=== PATIENT | male | born 1990 | race Caucasian/White ===

== ENCOUNTER 2017-01-24 21:30 | Emergency (ER) | payer OTHER ==
[2017-01-24 22:45] VITALS: BP 150/89
--- NOTE | 2017-01-24 23:19 | UC ---
Hand/Wrist HPI - HPI Summary HPI Summary: The patient comes in today for: 1. Right wrist pain: Onset: 9 hour ago. Palliative/provocative: Movement makes it worse. Rest makes it better. Quality: Sharp with movement. Dull pain otherwise. Region: Dorsum of the wrist. Severity: 6/10 Time: Constant. Associated symptoms: Event: He was involved with a restrain at [employer]. The patient and the restraintant fell to the concrete floor on his right wrist. Previous disease: None. Previous treatment: NOne. He states that he has had his ears (TM) ruptured multiple times but never had them evaluated and treated by ENT * - History Of Current Complaint Chief Complaint: UCUpperExtremity Stated Complaint: RIGHT WRIST-WC Time Seen by Provider: 01/24/17 23:00 Hx Obtained From: Patient - Allergies/Home Medications Allergies/Adverse Reactions: Allergies Allergy/AdvReac Type Severity Reaction Status Date / Time No Known Allergies Allergy Verified 01/24/17 22:26 Home Medications: Home Medications Prazosin CAP* [Minipress CAP*] 2 mg PO BEDTIME 01/24/17 [History Confirmed 01/24] QUEtiapine XR TAB* [SEROquel Xr TAB*] 50 mg PO BEDTIME 01/24/17 [History Confirmed 01/24/17] Triazolam TAB* [Halcion TAB*] 0.25 mg PO SEE INSTRUCTIONS 01/24/17 [History Confirmed 01/24/17] Venlafaxine CAP (NF) [Effexor CAP (NF)] 75 mg BEDTIME 01/24/17 [History Confirmed 01/24/17] cloNIDine TAB* [Catapres 0.1 MG TAB*] 0.1 mg PO BEDTIME 01/24/17 [History Confirmed 01/24/17] lamoTRIgine TAB(*) [LaMICtal TAB(*)] 25 mg PO BEDTIME 01/24/17 [History Confirmed 01/24/17] PMH/Surg Hx/FS Hx/Imm Hx Previously Healthy: No - insomnia. Endocrine History Of: Denies: Diabetes, Thyroid Disease, Hyperthyroidism, Hypothyroidism, Dyslipidemia Cardiovascular History Of: Reports: Hypertension - He states that taking clonidine regularly, his blood pressure is good. Denies: Cardiac Disorders, Pacemaker/ICD, Myocardial Infarction, Congestive Heart Failure, Atrial Fibrillation, Deep Vein Thrombosis, Bleeding Disorders Respiratory History Of: Reports: Asthma - As child Denies: COPD, Bronchitis, Pneumonia, Pulmonary Embolism GI/ History Of: Denies: Gastroesophageal Reflux, Ulcer, Gastrointestinal Bleed, Gall Bladder Disease, Kidney Stones, Diverticulitis, Renal Disease, Urosepsis Neurological History Of: Denies: TIA, CVA, Dementia, Seizures, Migraine Psychological History Of: Reports: Depression, Bipolar Disorder, Post Traumatic Stress Disorder Denies: Anxiety, Schizophrenia Cancer History Of: Denies: Lung Cancer, Colorectal Cancer, Breast Cancer, Prostate Cancer, Cervical Cancer Other History Of: Negative For: HIV, Hepatitis B, Hepatitis C, Anticoagulant Therapy - Surgical History Surgical History: Yes Surgery Procedure, Year, and Place: RIGHT knee replacement. Pins/brackets in RIGHT foot. Tonsils - Family History Known Family History: Negative: Cardiac Disease, Hypertension - Social History Occupation: Employed Full-time Alcohol Use: Weekly Alcohol Amount: 1xweek Substance Use Type: None Smoking Status (MU): Never Smoked Tobacco - Immunization History Most Recent Influenza Vaccination: 2015 Most Recent Tetanus Shot: UTD Most Recent Pneumonia Vaccination: N/A Review of Systems Constitutional: Negative Skin: Negative Eyes: Negative ENT: Negative Respiratory: Negative Cardiovascular: Negative Gastrointestinal: Negative Genitourinary: Negative Musculoskeletal: Arthralgia All Other Systems Reviewed And Are Negative: Yes Physical Exam Triage Information Reviewed: Yes Appearance: Well-Appearing, No Pain Distress, Well-Nourished Vital Signs: Initial Vital Signs Temp 98.4 F 01/24/17 22:34 Pulse 90 01/24/17 22:34 Resp 18 01/24/17 22:34 BP 150/89 01/24/17 22:34 Pulse Ox 99 01/24/17 22:34 Vital Signs Reviewed: Yes Eyes: Positive: Conjunctiva Clear. Negative: Discharge ENT: Positive: Hearing grossly normal. Negative: Pharyngeal erythema, Nasal congestion, Tonsillar swelling, Tonsillar exudate - TM lino and white suggesting scarring. Dental: Negative: Gross Decay/Caries @, Dental Fracture @ Neck: Positive: Supple, Nontender, No Lymphadenopathy. Negative: Nuchal Rigidity Respiratory: Positive: Lungs clear, No respiratory distress, No accessory muscle use. Negative: Crackles, Wheezing Cardiovascular: Positive: RRR, No Murmur Abdomen Description: Positive: Nontender, No Organomegaly, Soft. Negative: Distended, Guarding Musculoskeletal: Positive: Strength Intact, ROM Intact, No Edema, Other: - Right wrist: NO edema, no ecchymosis, thumb enclosed fist, thumbs up and pincher test all normal. NVI Neurological: Positive: Alert, Muscle Tone Normal Psychological: Positive: Age Appropriate Behavior, Consolable Skin: Negative: rashes, breakdown Hand/Wrist Course/Dx - Course Course Of Treatment: Patient told to wear splint and take medications to be re- evaluated after several days. - Differential Dx/Diagnosis Differential Diagnosis/HQI/PQRI: Sprain, Strain Provider Diagnoses: Right wrist sprain. Discharge - Discharge Plan Condition: Stable Disposition: HOME Patient Education Materials: Wrist Sprain (ED) Forms: *Work Release Referrals: Jules Prasad [Primary Care Provider] - 3 Days (See your primary care provider or us after several days to see how well you are doing. IF you get worse between now and then, please be seen sooner.)
[2017-01-24] MEDS ORDERED: Naproxen TAB* 250 MG PO ONE (23:26)
--- NOTE | 2017-01-25 07:47 | RAD ---
INDICATION: Right wrist injury. TECHNIQUE: 3 views of the right wrist were obtained. FINDINGS: The bones are in normal alignment. No fracture is seen. Joint spaces appear maintained. IMPRESSION: NO EVIDENCE FOR FRACTURE. IF THE PATIENT'S SYMPTOMS PERSIST RECOMMEND FOLLOW-UP IMAGING.
== END 2017-01-24 23:47 | disposition home or self-care (01) ==
LOC: UCCORT 21:30
DX: S63.501A Unspecified sprain of right wrist, initial encounter (principal); W19.XXXA Unspecified fall, initial encounter; Y93.89 Activity, other specified; Y92.159 Unspecified place in reform school as the place of occurrence of the external cause; Y99.0 Civilian activity done for income or pay; G47.00 Insomnia, unspecified; I10 Essential (primary) hypertension; Z96.651 Presence of right artificial knee joint
CPT/HCPCS: 99203; A9270-GY; G0463

== ENCOUNTER 2017-01-28 14:57 | Emergency (ER) | payer OTHER ==
[2017-01-28 15:47] VITALS: BP 127/84
--- NOTE | 2017-01-28 17:13 | UC ---
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 his left knee was hit on the medial side pain was so intense he fell onto his knee heard a loud pop and difficult to move afterwards shoved his from lateral side patella back onto knee not able to walk on left leg until 45 minutes later any weight bearing increases pain nothing lessens the pain pain is inside of knee and shoots to the lateral side not taking anything for pain - History of Current Complaint Chief Complaint: UCLowerExtremity Stated Complaint: LEFT KNEE INJURY WC Time Seen by Provider: 01/28/17 17:05 Hx Obtained From: Patient - Allergies/Home Medications Allergies/Adverse Reactions: Allergies Allergy/AdvReac Type Severity Reaction Status Date / Time No Known Allergies Allergy Verified 01/28/17 15:46 PMH/Surg Hx/FS Hx/Imm Hx Previously Healthy: Yes Endocrine History Of: Denies: Diabetes, Thyroid Disease, Hyperthyroidism, Hypothyroidism, Dyslipidemia Cardiovascular History Of: Reports: Hypertension - He states that taking clonidine regularly, his blood pressure is good. Denies: Cardiac Disorders, Pacemaker/ICD, Myocardial Infarction, Congestive Heart Failure, Atrial Fibrillation, Deep Vein Thrombosis, Bleeding Disorders Respiratory History Of: Reports: Asthma - As child Denies: COPD, Bronchitis, Pneumonia, Pulmonary Embolism GI/ History Of: Denies: Gastroesophageal Reflux, Ulcer, Gastrointestinal Bleed, Gall Bladder Disease, Kidney Stones, Diverticulitis, Renal Disease, Urosepsis Neurological History Of: Denies: TIA, CVA, Dementia, Seizures, Migraine Psychological History Of: Reports: Depression, Bipolar Disorder, Post Traumatic Stress Disorder Denies: Anxiety, Schizophrenia Cancer History Of: Denies: Lung Cancer, Colorectal Cancer, Breast Cancer, Prostate Cancer, Cervical Cancer Other History Of: Negative For: HIV, Hepatitis B, Hepatitis C, Anticoagulant Therapy - Surgical History Surgical History: Yes Surgery Procedure, Year, and Place: RIGHT knee replacement. Pins/brackets in RIGHT foot. Tonsils. Ear tubes. Right wrist ORIF - Family History Known Family History: Negative: Cardiac Disease, Hypertension - Social History Occupation: Employed Full-time Lives: With Family Alcohol Use: Weekly Alcohol Amount: 1xweek Substance Use Type: None Smoking Status (MU): Never Smoked Tobacco - Immunization History Most Recent Influenza Vaccination: 2016 Most Recent Tetanus Shot: UTD Most Recent Pneumonia Vaccination: N/A Review of Systems Constitutional: Negative Skin: Negative Eyes: Negative ENT: Negative Respiratory: Negative Cardiovascular: Negative Gastrointestinal: Negative Genitourinary: Negative Motor: Negative Neurovascular: Negative Musculoskeletal: Other: - left knee pain Neurological: Negative Psychological: Negative All Other Systems Reviewed And Are Negative: Yes Physical Exam Triage Information Reviewed: Yes Appearance: Well-Appearing, No Pain Distress Vital Signs: Initial Vital Signs Temp 98.2 F 01/28/17 15:42 Pulse 107 01/28/17 15:42 Resp 16 01/28/17 15:42 BP 127/84 01/28/17 15:42 Pulse Ox 97 01/28/17 15:42 Vital Signs Reviewed: Yes Eyes: Positive: Conjunctiva Clear ENT: Positive: Pharynx normal, TMs normal Neck: Positive: No Lymphadenopathy Respiratory: Positive: Lungs clear, Normal breath sounds, No respiratory distress Cardiovascular: Positive: RRR, No Murmur, Pulses Normal Abdomen Description: Positive: Nontender, Soft Bowel Sounds: Positive: Present Musculoskeletal: Positive: Other: - LLE- No bony deformities, tenderness and edema around patella Full ROM (extension/flexion). Limited internal and external rotation. negative Anterior/Posterior Drawer signs, pain with valgus and varus pressure Neurological: Positive: Alert Psychological Exam: Normal Skin Exam: Normal Knee Pain Course/Dx - Course Course Of Treatment: exam completed. x-ray shows no fracture- d/t mechanism of injury, pain with ambulation will send to orthopedics for further evaluation - Differential Dx/Diagnosis Differential Diagnosis/HQI/PQRI: Fracture (Closed), Internal Derangement Of Knee , Sprain, Strain Provider Diagnoses: left knee- internal derangement of the knee Discharge - Discharge Plan Condition: Stable Disposition: HOME Patient Education Materials: Knee Pain (ED), Swollen Knee Joint (ED) Forms: *Work Release Referrals: Jules Prasad [Primary Care Provider] - Kosta Zendejas MD [Medical Doctor] - Additional Instructions: .Please call clinical trial specialist for an appointment. They will evaluate and determine your treatment. It is important to keep weight off of your knee Use crutches and wear immobilizer until you are seen by orthopedics. Take ibuprofen to control pain and reduce inflammation. Please review your discharge instructions. If your symptoms worsen call clinical trial specialist or return to urgent care. Your blood pressure is pre-hypertensive reading. Please contact your primary care provider within 1 day -4 weeks for further evaluation
--- NOTE | 2017-01-28 17:44 | RAD ---
HISTORY: Left knee pain and trauma COMPARISONS: None VIEWS: 2, Frontal and lateral views of the left knee FINDINGS: BONE DENSITY: Normal. BONES: There is no displaced fracture. JOINTS: There is no arthropathy. There is no suprapatellar joint effusion or lipohemarthrosis. ALIGNMENT: There is no dislocation. SOFT TISSUES: Unremarkable. OTHER FINDINGS: None. IMPRESSION: NO ACUTE OSSEOUS INJURY. IF SYMPTOMS PERSIST, RECOMMEND REPEAT IMAGING.
== END 2017-01-28 18:00 | disposition home or self-care (01) ==
LOC: UCCORT 14:57
DX: S89.92XA Unspecified injury of left lower leg, initial encounter (principal); X58.XXXA Exposure to other specified factors, initial encounter; Y93.89 Activity, other specified; Y92.159 Unspecified place in reform school as the place of occurrence of the external cause; Y99.0 Civilian activity done for income or pay; I10 Essential (primary) hypertension; J45.909 Unspecified asthma, uncomplicated; F31.9 Bipolar disorder, unspecified; Z96.651 Presence of right artificial knee joint
CPT/HCPCS: 99213; G0463

== ENCOUNTER 2017-10-17 08:23 | Day surgery (SDC) | payer OTHER ==
--- NOTE | 2017-10-11 21:22 | HP ---
PREOPERATIVE HISTORY AND PHYSICAL: DATE OF ADMISSION/SURGERY: 10/17/17 - [facility] DATE OF OFFICE VISIT: 10/11/17 ATTENDING SURGEON: Dr. Didi Reza.* (DICTATED BY ALFA DEGROOT) PROCEDURE: Left knee arthroscopy, possible meniscus repair, outside-in repair. CHIEF COMPLAINT: Left knee pain. HISTORY OF PRESENT ILLNESS: Jarett is a 27-year-old male who presented to the clinic for a left knee pain after a work-related injury where one of the residents of [facility] drove his knee into the patient's knee. He has had continued pain and failed conservative measures and therefore agreed to undergo a left knee arthroscopy, possible meniscus repair, outside-in repair with Dr. Reza on 10/17/17. PAST MEDICAL HISTORY: PTSD, asthma, chronic right knee pain, depression, anxiety and history of hypertension. PAST SURGICAL HISTORY: Tubes in his ear, multiple right knee scopes, right wrist surgery, tonsillectomy and right foot surgery. The patient denies prior complications with anesthesia. MEDICATIONS: 1. Clonidine HCl 0.1 mg one by mouth 3 times a day. 2. Escitalopram oxalate 10 mg one by mouth every day. 3. Doxepin HCl 50 mg one capsule at bedtime. ALLERGIES: No known drug allergies. FAMILY HISTORY: Positive for diabetes, stroke and cancer. SOCIAL HISTORY: He lives with his spouse. He works as a occupational therapist assistant. He is a former smoker and quit in 2013, however, currently does chew tobacco. He reports occasional alcohol consumption. He exercises occasionally. He is right hand dominant. He denies illegal drug use. REVIEW OF SYSTEMS: A 14-point review of systems was reviewed with the patient. Positive for current complaint, otherwise negative. Denies fevers, chills, chest pain, or shortness of breath, history of bleeding disorder, history of DVT or PE, history of MRSA. PHYSICAL EXAMINATION GENERAL: A 27-year-old well-developed, well-nourished male in no acute distress. Alert and oriented x3. Appropriate mood and affect. VITAL SIGNS: Height 66, weight 276. Blood pressure 132/80, respiratory rate 18 , temperature 98.2, BMI 44.5. HEENT: Normocephalic, atraumatic. PERRLA. Throat clear. NECK: Supple. PULMONARY: Lungs are clear to auscultation bilaterally. No wheezing, rhonchi, or rales. CARDIO: Regular rate and rhythm. S1, S2. No murmurs, gallops, or rubs. No edema. ABDOMEN: Positive bowel sounds, soft, nontender. MUSCULOSKELETAL: Left lower extremity, skin is intact. No warmth or erythema, mild effusion, tenderness to palpation over the lateral joint line. Range of motion 0 to 120. Stable to varus and valgus stress, stable Jason, negative posterior drawer, positive James. Calves are soft, nontender. +2 PT pulses. Sensation intact to light touch distally. NEURO: Alert and oriented x3. Cranial nerves grossly intact. Sensation is intact to light touch distally. DIAGNOSTIC STUDIES: Multiple view x-rays and MRI of the left knee revealed radial split tear of the lateral meniscus. IMPRESSION: Left knee radial split tear of the lateral meniscus. PLAN: The patient is scheduled to undergo a left knee arthroscopy, possible meniscus repair, outside-in repair with Dr. Reza on 10/17/17. He will follow up in 10 to 14 days postop for followup and suture removal. Script for Percocet was sent to his pharmacy for postop pain management. ALFA DEGROOT [id number]/CPS #: [id number] MTDCarol
[~2017-10-17 08:23] MED LIST: Buffered Lidocaine 0.9% SYRIN* 5 ML/SYR SYRINGE INTRADERM ONE; Dexamethasone IV* 4 MG/ML 1 ML (4 MG) IV SLOW PU ONE; Dexamethasone IV* 4 MG/ML 1 ML (4 MG) ONE; Famotidine IV* 10 MG/ML 2 ML (20 mg) IV ONE; Famotidine IV* 10 MG/ML 2 ML (20 mg) ONE; ceFAZolin 2 GM PREMIX (*) 2 GM/50 ML BAG IVPB ONE
[2017-10-17] MEDS ORDERED: fentaNYL* 50 MCG/ML 2 ML VIAL (100 MCG VIAL) ONE (09:56)
[2017-10-17] MEDS ORDERED: Midazolam* 1 MG/ML 2 ML VIAL (2 MG) ONE (09:57)
[2017-10-17] MEDS ORDERED: Bupivacaine 0.25% SDV* 30 ML ONE (09:57)
[2017-10-17] MEDS ORDERED: Lidocaine 1% MPF wEPI 200,000* 30 ML SDV ONE (10:11)
[2017-10-17] MEDS ORDERED: Ketorolac INJ* 30 MG/ML 1 ML VIAL ONE (10:12)
[2017-10-17] MEDS ORDERED: Propofol* 10 MG/ML 20 ML BTL IV PUSH ONE (10:12)
[2017-10-17] MEDS ORDERED: Lidocaine 2% PF * 5 ML VIAL ONE (10:12)
[2017-10-17] MEDS ORDERED: Ondansetron INJ* 2 MG/ML VIAL ONE (10:42)
[2017-10-17] MEDS ORDERED: HYDROcodone/ACETAMIN 5-325 MG* 1 TAB PO PRN (10:52)
[2017-10-17] MEDS ORDERED: Naloxone* 0.4 MG/ML 1 ML VIAL IV PRN (10:52)
[2017-10-17] MEDS ORDERED: oxyCODONE/Acetamin 5/325 MG* TAB PO PRN (10:52)
[2017-10-17] MEDS ORDERED: fentaNYL* 50 MCG/ML 2 ML VIAL (100 MCG VIAL) IV PRN (10:52)
[2017-10-17] MEDS ORDERED: PROCHLORPERAZINE INJ 5 MG/ML 2 ML VIAL IV PRN (10:52)
[2017-10-17] MEDS ORDERED: oxyCODONE/Acetamin 5/325 MG* TAB ONE (11:36)
[2017-10-17 12:20] VITALS: BP 138/87
--- NOTE | 2017-10-18 05:13 | OP ---
CC: Jules LOMBARDI NP DATE OF OPERATION: 10/17/17 - [facility] DATE OF : 86 SURGEON: Didi Reza MD FURNITURE SALESPERSON: ALFA Young. An assistant media planner was needed for the entirety of the case to help with positioning, retraction and utilized throughout all portions of the case, in case also there was going to be a repair. PRE-OP DIAGNOSIS: Lateral radial split tear of the meniscus. POST-OP DIAGNOSIS: Lateral radial split tear of the meniscus. OPERATIVE PROCEDURE: Left knee arthroscopy with partial lateral meniscectomy. COMPLICATIONS: None. ESTIMATED BLOOD LOSS: Minimal. IMPLANTS: None. INDICATIONS: Jarett Savage is a 27-year-old male who sustained a work-related injury to his knee in January 2017. He has failed conservative management. He reports a dislocation of the knee cap in January and then he noticed in July he had a pop in the knee and had persistent catching and locking pain. Risks and benefits of surgery were discussed at length, including but not limited to bleeding, infection, damage to nerves, vessels, surrounding structures, wound nonhealing, persistent pain, need for further surgery, scarring, stiffness, incomplete relief of symptoms, failure of the repair, risk of DVT. DESCRIPTION OF PROCEDURE: The patient was greeted in the preoperative area by the attending surgeon. Correct extremity was marked and consent was confirmed. The patient was brought back to the operating suite where he was placed in supine position on the operating table. He then underwent general anesthesia with LMA intubation, after which an unsterile tourniquet was placed high in the proximal thigh. The lateral post was positioned. The left leg was then prepped and draped in the usual sterile fashion beginning with chlorhexidine soap, scrub, and alcohol wipe and a final prep with ChloraPrep. The knee was then intra-articularly injected with 1% lidocaine with epi. After appropriate surgical pause indicating side, site, procedure, and administration of antibiotics, the anterolateral portal was made sharply with 11 blade. The scope was introduced into the joint. The joint was examined. There were no obvious loose bodies. The patellofemoral joint had grade 0 to 1 changes with fissuring of the patellar cartilage, but no unstable flaps. The medial and lateral gutters without any loose bodies. The trochlea was without any wear. The scope was brought into the medial compartment, which had an intact meniscus and grade 0 to 1 changes. The ACL and PCL were intact. The knee was placed in figure- four position and the lateral meniscus was examined. There was an evidence of a radial split tear in the white-white zone with unstable flaps. This was found to be non-repairable as it did not go all the way to the red-red zone. This was then debrided back using biters and tresa. Once this debridement was complete, the lateral femoral condyle was examined and had fissuring as well. Synovectomy was done anteriorly to remove the abundant fat pad and the hemostasis was obtained using electrocautery device. The knee was thoroughly lavaged and removed of any loose debris. The wounds were copiously irrigated with sterile saline. The portals were closed with 3-0 nylon. Sterile dressings were applied. The knee was intra-articularly injected with 0.25% Marcaine. Cryo/Cuff as well as sterile dressings were applied. He was awoken from anesthesia and transferred to the PACU in stable condition. POSTOPERATIVE PLAN: He will be weightbearing as tolerated, using crutches for the first 3 to 5 days. Discharged on pain medication. DVT prophylaxis was considered, but deferred due to no previous personal or family history. I will see the patient back in 10 to 14 days. [id number]/[facility] #: [id number] LACIE
== END 2017-10-17 12:22 | disposition home or self-care (01) ==
LOC: OREAST 08:23
PROVIDERS: ATTEND Orthopaedic Surgery
DX: S83.282A Other tear of lateral meniscus, current injury, left knee, initial encounter (principal); W50.0XXA Accidental hit or strike by another person, initial encounter; Y92.159 Unspecified place in reform school as the place of occurrence of the external cause; Y99.0 Civilian activity done for income or pay; Z87.891 Personal history of nicotine dependence; F41.8 Other specified anxiety disorders; J45.909 Unspecified asthma, uncomplicated; I10 Essential (primary) hypertension; G47.33 Obstructive sleep apnea (adult) (pediatric)
CPT/HCPCS: A9270-GY; J0690; J1100; J1885; J2001; J2250; J2405; J2704; J3010

== ENCOUNTER 2018-07-03 08:18 | Day surgery (SDC) | payer OTHER ==
[~2018-07-03 08:18] MED LIST changes: -Dexamethasone IV* 4 MG/ML 1 ML (4 MG) ONE; -Famotidine IV* 10 MG/ML 2 ML (20 mg) ONE; -ceFAZolin 2 GM PREMIX (*) 2 GM/50 ML BAG IVPB ONE
[2018-07-03] MEDS ORDERED: Dexamethasone IV* 4 MG/ML 1 ML (4 MG) ONE (08:33)
[2018-07-03] MEDS ORDERED: Famotidine IV* 10 MG/ML 2 ML (20 mg) ONE (08:33)
[2018-07-03] MEDS ORDERED: ceFAZolin 2 GM in NS PREMIX(*) 2 GM/100 ML BAG IVPB ONE (08:33)
[2018-07-03] MEDS ORDERED: ROPIVACAINE 5 MG/ML 30 ML BTL (0.5%) ONE (09:44)
[2018-07-03] MEDS ORDERED: Lidocaine 1% MPF wEPI 200,000* 30 ML SDV ONE (09:44)
[2018-07-03] MEDS ORDERED: fentaNYL* 50 MCG/ML 2 ML VIAL (100 MCG VIAL) ONE (09:51)
[2018-07-03] MEDS ORDERED: Midazolam* 1 MG/ML 5 ML VIAL (5 MG) ONE (09:51)
[2018-07-03] MEDS ORDERED: fentaNYL* 50 MCG/ML 2 ML VIAL (100 MCG VIAL) IV PRN (10:00)
[2018-07-03] MEDS ORDERED: HYDROcodone/ACETAMIN 5-325 MG* 1 TAB PO PRN (10:00)
[2018-07-03] MEDS ORDERED: oxyCODONE/Acetamin 5/325 MG* TAB PO PRN (10:00)
[2018-07-03] MEDS ORDERED: Naloxone* 0.4 MG/ML 1 ML VIAL IV PRN (10:00)
[2018-07-03] MEDS ORDERED: DiMENhydriNATE IV* 50 MG/ML VIAL IV PUSH PRN (10:00)
[2018-07-03] MEDS ORDERED: Lidocaine 2% PF * 5 ML VIAL ONE (10:06)
[2018-07-03] MEDS ORDERED: Propofol* 10 MG/ML 20 ML BTL IV PUSH ONE (10:06)
[2018-07-03] MEDS ORDERED: Ketorolac INJ* 30 MG/ML 1 ML VIAL ONE (10:15)
[2018-07-03] MEDS ORDERED: Ondansetron INJ* 2 MG/ML VIAL ONE (10:38)
[2018-07-03] MEDS ORDERED: oxyCODONE/Acetamin 5/325 MG* TAB ONE (11:37)
[2018-07-03 12:13] VITALS: BP 97/60
--- NOTE | 2018-07-04 10:19 | OP ---
DATE OF OPERATION: 07/03/18 [facility] DATE OF : 86 SURGEON: Didi Reza MD BUSINESS ATTORNEY: None available. PRE-OP DIAGNOSIS: Left knee lateral meniscus tear. POST-OP DIAGNOSIS: Left knee lateral meniscus tear. OPERATIVE PROCEDURE: Left knee arthroscopy with partial lateral meniscectomy and synovectomy, partial lateral meniscectomy and chondroplasty of the patellofemoral joint. COMPLICATIONS: None. ESTIMATED BLOOD LOSS: Minimal. TOURNIQUET TIME: Zero minutes. INDICATIONS: Jarett Savage is a 27-year-old male who had a previous radial split tear of his lateral meniscus. He had undergone arthroscopy, did well until he was at work and he sustained a work-related injury. He was diagnosed with a re- tear of the lateral meniscus. Risks and benefits of surgery were discussed at length including but not limited to bleeding; infection; damage to nerves, vessels, surrounding structures; wound nonhealing; persistent pain; need for further surgery, scarring, stiffness, incomplete relief of symptoms, risk of anesthesia. DESCRIPTION OF PROCEDURE: The patient greeted in the preoperative area by the attending surgeon. Correct extremity was marked and consent was confirmed. The patient was brought back to the operating suite where he was placed in supine position on the operating table. He then underwent general anesthesia with LMA intubation after which he was appropriately positioned on the bed. An unsterile tourniquet was placed high on the proximal thigh. The lateral post was positioned. The left leg was then prepped and draped in the usual sterile fashion beginning with chlorhexidine soap, scrub, and alcohol wipe and a final prep with ChloraPrep. After appropriate surgical pause indicating site, side, procedure, and administration of antibiotics, the knee was intra-articularly injected with 1% lidocaine with epi. The anterolateral portal was made sharply with 11 blade. The scope was introduced through the joint. There was abundant scar tissue particularly anterolaterally. The anteromedial portal was made using 18-gauge for needle localization. The shaver was used to debride back the abundant scar tissue. The electrocautery device was also used to remove the dense tissue. The patellofemoral joint had areas of fissuring and some softening grade 2 changes along the center. This was debrided back using the shaver. The remainder of the cartilage with grade 0 changes, trochlea had grade 0 changes. Medial gutter was intact. Lateral gutter was difficult to visualize until the scar tissue was removed. ACL and PCL were intact. The medial meniscus was intact. Lateral compartment was examined. There were grade 0 to 1 changes but there was a radial split tear. This was debrided back using tresa and biters. Once this was complete, final images were obtained. The knee was sterilely lavaged to remove any loose debris. Wounds were copiously irrigated. The Jose Roberto portal was utilized to make sure there was no loose body evident. Final images were obtained. The portals were then closed with 3-0 nylon in interrupted fashion. Sterile dressings were applied. The knee was intra-articularly injected with 0.2% ropivacaine. Sterile dressings and Cryo/ Cuff was applied. She was awoken from anesthesia and transferred to PACU in stable condition. POSTOPERATIVE PLAN: He will be weightbearing as tolerated. Range of motion as tolerated. He will be discharged on pain medication and antibiotics because of his revision surgery. I will see the patient back in 10 to 14 days. DVT prophylaxis was considered but deferred due to no previous personal or family history. I will see the patient back in 10 to 14 days. [id number]/[facility] #: [id number] LACIE
== END 2018-07-03 12:04 | disposition home or self-care (01) ==
LOC: OREAST 08:18
PROVIDERS: ATTEND Orthopaedic Surgery
DX: S83.282A Other tear of lateral meniscus, current injury, left knee, initial encounter (principal); M25.462 Effusion, left knee; J45.909 Unspecified asthma, uncomplicated; F41.8 Other specified anxiety disorders; I10 Essential (primary) hypertension; F43.10 Post-traumatic stress disorder, unspecified; X58.XXXA Exposure to other specified factors, initial encounter; Y92.89 Other specified places as the place of occurrence of the external cause; Y99.0 Civilian activity done for income or pay; Z87.891 Personal history of nicotine dependence
CPT/HCPCS: 88304; A9270-GY; J0690; J1100; J1885; J2001; J2250; J2405; J2704; J2795; J3010

== ENCOUNTER → 2019-01-10 10:55 | Day surgery (SDC) | payer OTHER ==
--- NOTE | 2019-01-09 09:58 | HP ---
PREOPERATIVE HISTORY AND PHYSICAL: DATE OF SURGERY: 01/10/19 ATTENDING SURGEON: Dr. Didi Reza* (dictated by ALFA Degroot). PROCEDURE: Left knee arthroscopy, partial meniscectomy. CHIEF COMPLAINT: Left knee. HISTORY OF PRESENT ILLNESS: Jarett is a 28-year-old male who presents to the clinic for left knee pain due to a work-related injury. He had a prior left knee scope with partial meniscectomy, but had an injury where he re-tore his meniscus. He failed conservative treatment and therefore has agreed to undergo a left knee arthroscopy, partial meniscectomy with Dr. Reza on 01/10/19. PAST MEDICAL HISTORY: Asthma, PTSD, depression, anxiety, chronic right knee pain, hypertension. PAST SURGICAL HISTORY: Multiple right knee arthroscopies, 2 left knee arthroscopies, left wrist surgery, tonsillectomy, right foot surgery, bilateral ear surgery, and back surgery. The patient denies prior complications with anesthesia. MEDICATIONS: Clonidine 0.1 mg one by mouth twice a day. ALLERGIES: No known drug allergies. FAMILY HISTORY: Positive for diabetes, stroke, and cancer. SOCIAL HISTORY: He lives with his spouse. He is a teacher. He is a former smoke, quit in 2012. He currently chews tobacco. He reports rare alcohol consumption. He exercises occasionally. He is a right-hand dominant. REVIEW OF SYSTEMS: A 14-point review of systems was reviewed with the patient. Positive for current complaint, otherwise negative. Denies fevers, chills, chest pain, shortness of breath, history of bleeding disorder, history of DVT or PE. PHYSICAL EXAMINATION GENERAL: A 28-year-old, well-developed, well-nourished male, in no acute distress. VITAL SIGNS: Height 67, weight 253, pulse 66, blood pressure 120/78, temperature 97.3, BMI 39.6. HEENT: Normocephalic, atraumatic. PERRLA. NECK: Supple. PULMONARY: Lungs clear to auscultation bilaterally. No wheezing, rhonchi, or rales. CARDIO: Regular rate and rhythm. S1, S2. No murmurs, gallops, or rubs. No edema. ABDOMEN: Positive bowel sounds, soft, nontender. NEURO: Alert and oriented x3. Cranial nerves grossly intact. MUSCULOSKELETAL: Left lower extremity: Skin is intact. No warmth or erythema. Previously well-healed surgical incision. Tenderness to palpation over lateral joint line. Range of motion 5 to 95. Stable to varus and valgus stress. Stable Jason and negative posterior drawer. Calves soft and nontender. +5/5 strength in ankle dorsiflexion and plantarflexion. +2 DP pulse. Sensation intact to light touch distally. DIAGNOSTIC STUDIES: MRI revealed a lateral meniscus tear as well as postsurgical changes. IMPRESSION: Left knee lateral meniscus tear. PLAN: The patient is scheduled to undergo a left knee arthroscopy with partial meniscectomy with Dr. Reza on 01/10/19. He will follow up in 10 to 14 days postop for followup and suture removal. Percocet will be used for postop pain management as well as Keflex for antibiotic prophylaxis since he has had prior surgeries. ALFA DEGROOT [id number]/[facility] #: [id number] [facility] CENTERCarol
[~2019-01-10 10:55] MED LIST changes: +Acetaminophen TAB* 325 MG PO PRN; -Buffered Lidocaine 0.9% SYRIN* 5 ML/SYR SYRINGE INTRADERM ONE; +Buffered Lidocaine 1% SYRIN* 1 ML/SYRINGE INTRADERM ONE; -Dexamethasone IV* 4 MG/ML 1 ML (4 MG) IV SLOW PU ONE; +DiMENhydriNATE IV* 50 MG/ML VIAL IV PUSH PRN; +Famotidine IV* 10 MG/ML 2 ML (20 mg) ONE; +HYDROmorphone INJ1* 1 MG/ML SYRINGE ONE; +Ketorolac INJ* 30 MG/ML 1 ML VIAL ONE; +Lactated Ringers 1000 ML Bag* 1,000 ML IV SCH; +Lidocaine 1% MPF wEPI 200,000* 30 ML SDV ONE; +Lidocaine 2% PF * 5 ML VIAL ONE; +Midazolam* 1 MG/ML 5 ML VIAL (5 MG) ONE; +Naloxone* 0.4 MG/ML 1 ML VIAL IV PRN; +Ondansetron INJ* 2 MG/ML VIAL ONE; +Propofol* 10 MG/ML 20 ML BTL ONE; +Ropivacaine* 2 MG/ML 20 ML VIAL (0.2%) ONE; +ceFAZolin 2 GM in NS PREMIX(*) 2 GM/100 ML BAG IVPB ONE; +fentaNYL* 50 MCG/ML 2 ML VIAL (100 MCG VIAL) ONE; +oxyCODONE/Acetamin 5/325 MG* TAB ONE
[2019-01-10] MEDS: HYDROmorphone INJ1* 1 MG/ML SYRINGE IV PRN ×5 (14:53→15:29)
[2019-01-10 17:05] VITALS: BP 103/64
--- NOTE | 2019-01-11 03:53 | OP ---
DATE OF SURGERY: 01/10/19 [facility] DATE OF : [birth year] SURGEON: Didi Reza MD. SIZE CHANGER: ALFA Young. Appetizer Packer was needed for the repair portion of the case to help with positioning and suture and device placement. PRE-OP DIAGNOSIS: Left knee lateral meniscus tear. POST-OP DIAGNOSIS: Left knee lateral meniscus tear. OPERATIVE PROCEDURE: Left knee arthroscopy with lateral meniscus repair. IMPLANTS USED: Two Blas and Nephew Fast-Fix. COMPLICATIONS: None. ESTIMATED BLOOD LOSS: Minimal. INDICATIONS: Jarett Savage is a 28-year-old male who has had a work-related injury to his left knee. He initially underwent arthroscopy and then did okay until he had a twisting injury and had locking of the knee. He was diagnosed with a lateral meniscus tear. We scheduled him for surgical treatment. Risks and benefits were discussed at length including, but not limited to, bleeding, infection, damage to nerves, vessels, surrounding structures, wound nonhealing, persistent pain, need for surgery, scarring, stiffness, incomplete relief of symptoms, and risks of anesthesia. DESCRIPTION OF PROCEDURE: The patient was greeted in the preoperative area by the attending surgeon. The correct extremity was marked and consent was confirmed. The patient was brought back to the operating suite where he was placed in the supine position on the operating table and underwent general anesthesia and LMA intubation, after which he was appropriately positioned in bed, lateral post was positioned. An unsterile tourniquet was placed high on the proximal thigh. The left leg was then prepped and draped in the usual sterile fashion beginning with chlorhexidine soap, scrub, and alcohol wipe and a final prep with ChloraPrep. After appropriate surgical pause indicating side, site, procedure, and administration of antibiotics, the knee was intra-articularly injected with 1% lidocaine with epi. The scope was then positioned into the joint. Anterolateral portal was made using an 11-blade. The scope was positioned into the joint. Anteromedial portal was made in an outside-in fashion. ACL and PCL were intact. The patellofemoral joint had minimal changes. The medial compartment had grade 0 changes with an intact meniscus. Medial and lateral gutters were intact. Lateral compartment was examined with the knee in the [id number] position. There was mild fissuring in the tibial plateau, but otherwise grade 0 changes to the lateral femoral condyle. There was evidence of a previous lateral meniscus partial meniscectomy for his lateral radial split tear, but still the majority of the meniscus was intact. We then probed the meniscus and there was a full-thickness tear at the very peripheral edge in the red-red zone. Because of the nature of the tear, there was concern if this is actually a repairable tear. The patient is very young and has virtually no arthritis in his knee. Because he is very active, the concern was that to treat this as a meniscectomy would require the entire meniscus to be removed and has a high rate of arthritis within the next 10 to 15 years. The patient's mother was called in the preoperative waiting area and the case was discussed. We had briefly discussed this in the office but I was concerned that it was not a repairable tear. We elected to proceed with a fixation. Therefore 2 Blas and Nephew Fast-Fix were brought to the field. The meniscus edges were then rasped very carefully with a meniscus rasp and the 18-gauge spinal needle was also used to fenestrate to try to induce the bleeding. Once this was done, 2 Fast-Fix were placed posterolaterally, which helped to secure the tear. Care was taken to not involve the popliteal hiatus. The knee was then taken through range motion and the meniscus was found to be stable. The knee was then placed in approximately 90 degrees, and using a Santos awl, a small notchplasty to allow for bone marrow aspiration was done in the notch anterior superior to the ACL. Final images were obtained. The wounds were copiously irrigated with sterile saline. Portals were closed with 3-0 nylon. Sterile dressing was applied, a Cryo/Cuff and a knee brace locked in extension with range of motion from 0 to 70 degrees. He was awoken from anesthesia and transferred to the PACU in stable condition. POSTOPERATIVE PLAN: He will be nonweightbearing for 4 weeks, discharged on pain medication. DVT prophylaxis considered, but deferred due to no previous personal or family history. I will see the patient back in 10 to 14 days. [id number]/[facility] #: [id number] LACIE
== END | disposition home or self-care (01) ==
LOC: OR 10:55
PROVIDERS: ATTEND Orthopaedic Surgery
DX: S83.282D Other tear of lateral meniscus, current injury, left knee, subsequent encounter (principal); J45.909 Unspecified asthma, uncomplicated; F43.10 Post-traumatic stress disorder, unspecified; F32.9 Major depressive disorder, single episode, unspecified; F41.9 Anxiety disorder, unspecified; Z87.891 Personal history of nicotine dependence; X58.XXXD Exposure to other specified factors, subsequent encounter
CPT/HCPCS: A9270-GY; J0690; J1170; J1885; J2001; J2250; J2405; J2704; J2795; J3010

== ENCOUNTER 2019-01-13 21:43 | Emergency (ER) | payer OTHER ==
--- OUTSIDE RECORDS SUMMARY | 2019-01-13 21:56 | XMS REPORT | Continuity of Care Document ---
:1990 External Reference #:[id number] Author Name Jana Drake Care Team Providers Name Role Phone [facility] Primary Care Physician Unavailable Payers Date Identification Numbers Payment Provider Subscriber Policy Number: [id number] [employer] Program Atif Savage PayID: [id number] [address] [place] [address] Onset: 2017 Policy Number: [id number] TST Atif Savage Group Number: [id number] [address] Group Name: [id number] [place] [address] PayID: [id number] Advance Directives Description No Information Available Problems Date Description Provider Status Onset: 09/29/2017 Complex tear of lateral meniscus, current Didi Reza MD Active injury, left knee, subsequent encounter Onset: 09/29/2017 Lateral dislocation of left patella, Didi Reza MD Active subsequent encounter Onset: 04/25/2018 Current tear of lateral cartilage AND/OR Didi Reza MD Active meniscus of knee Onset: 04/25/2018 Knee joint effusion Didi Reza MD Active Family History Date Family Member(s) Observation Comments Mother Diabetes maternal grandfather. Also had heart issues Mother maternal grandmother-cancer Social History Type Date Description Comments Sex Unknown Marital Status Single Lives With Alone Occupation health care assistant at [employer] Smokeless Tobacco Current Smokeless Uses 2 cans of chew Tobacco User, Uses 10 tobacco a day Times Daily ETOH Use Occasionally consumes alcohol Tobacco Use Start: Unknown End: Patient is a former Quit 2010 Unknown smoker Recreational Drug Use Denies Drug Use Smoking Status Reviewed: 01/09/19 Patient is a former Quit 2011 smoker Exercise Type/Frequency Exercises regularly lifts weights upper body Allergies, Adverse Reactions, Alerts Description No Known Drug Allergies Medications Medication Date Status Form Strength Qnty SIG Indications Ordering Provider Clonidine HCL Active Tablets 0.1mg 1 by Unknown 000 mouth tid Percocet Hx Tablets 5-325mg 15tabs 1 tabs by Didi 018 - mouth MD Juaquin every 4-6 019 hours as needed pain Keflex Hx Capsules 500mg 12caps take 1 Didi 018 - tab by MD Juaquin mouth 019 four times a day x 3 days Diclofenac Hx Tablets 50mg 90tabs 1 tab by Didi Potassium 018 - mouth MD Juaquin three 019 times a day Percocet Hx Tablets 5-325mg 30tabs 1-2 tabs Laurent 018 - by mouth David every 4-6 M.D. 018 hours as needed post op pain Effexor XR Hx Caps ER 75mg 1 by Unknown 000 - 24HR mouth bid 017 Vitamin D-3 Hx Capsules 1000Unit 1 by Unknown 000 - mouth bid 017 Prazosin HCL Hx Capsules 2mg 1 tab by Unknown 000 - mouth every 017 night at bedtime prn Lamotrigine Hx Tablets 100mg 1 by Unknown 000 - mouth twice a 017 day Seroquel Hx Tablets 25mg take one Unknown 000 - tablet by mouth at 017 bedtime Escitalopram Hx Tablets 10mg 1 by Unknown Oxalate 000 - mouth every day 018 Doxepin HCL Hx Capsules 50mg 1 cap at Unknown 000 - bedtime 018 Medications Administered in Office Medication Date Status Form Strength Qnty SIG Indications Ordering Provider Depomedrol Administered Injection Dominique 40MG 019 Kasey Orozco Immunizations Description No Information Available Vital Signs Date Vital Result Comment 01/09/2019 7:54am Height 67 inches 5'7" Weight 253.00 lb Heart Rate 66 /min BP Systolic 120 mmHg BP Diastolic 78 mmHg Body Temperature 97.3 F BMI (Body Mass Index) 39.6 kg/m2 01/02/2019 3:09pm Height 67 inches 5'7" Weight 253.00 lb BP Systolic 126 mmHg BP Diastolic 80 mmHg Respiratory Rate 18 /min Pain Level 6 BMI (Body Mass Index) 39.6 kg/m2 11/28/2018 11:01am Height 67 inches 5'7" Weight 253.00 lb BP Systolic 140 mmHg BP Diastolic 88 mmHg Respiratory Rate 18 /min Pain Level 8 BMI (Body Mass Index) 39.6 kg/m2 10/16/2018 8:22am Height 67 inches 5'7" Weight 253.00 lb Heart Rate 66 /min BP Systolic 162 mmHg BP Diastolic 78 mmHg Respiratory Rate 14 /min Body Temperature 98.6 F Pain Level 9 BMI (Body Mass Index) 39.6 kg/m2 06/29/2018 10:39am Height 67 inches Weight 247.50 lb Heart Rate 56 /min BP Systolic 122 mmHg BP Diastolic 82 mmHg Respiratory Rate 18 /min Body Temperature 97.3 F Pain Level 5 BMI (Body Mass Index) 38.8 kg/m2 05/05/2018 9:07am Height 66 inches 5'6" Weight 257.00 lb BP Systolic 138 mmHg BP Diastolic 78 mmHg Respiratory Rate 18 /min Pain Level 6 BMI (Body Mass Index) 41.5 kg/m2 04/25/2018 10:09am Height 66 inches 5'6" Weight 257.00 lb Heart Rate 73 /min BP Systolic 139 mmHg BP Diastolic 96 mmHg Body Temperature 97.6 F Pain Level 7 BMI (Body Mass Index) 41.5 kg/m2 10/28/2017 10:17am Height 66 inches 5'6" Heart Rate 104 /min BP Systolic 142 mmHg BP Diastolic 86 mmHg Respiratory Rate 17 /min Body Temperature 98.6 F Pain Level 5 2017 9:42am Height 66 inches 5'6" Weight 276.00 lb BP Systolic 132 mmHg BP Diastolic 82 mmHg Respiratory Rate 18 /min Body Temperature 98.2 F Pain Level 7 BMI (Body Mass Index) 44.5 kg/m2 09/29/2017 9:20am Height 66 inches 5'6" Weight 276.00 lb w/ boots Heart Rate 86 /min reg BP Systolic Sitting 154 mmHg Lue, lg cuff BP Diastolic Sitting 94 mmHg Lue, lg cuff Respiratory Rate 16 /min Pain Level 8 left knee BMI (Body Mass Index) 44.5 kg/m2 09/23/2017 8:36am Height 66 inches 5'6" Weight 254.00 lb Heart Rate 128 /min BP Systolic Sitting 132 mmHg BP Diastolic Sitting 84 mmHg Respiratory Rate 18 /min Pain Level 5 BMI (Body Mass Index) 41.0 kg/m2 08/12/2017 11:14am Height 66 inches 5'6" Weight 246.00 lb Heart Rate 75 /min BP Systolic Sitting 142 mmHg BP Diastolic Sitting 92 mmHg Respiratory Rate 18 /min Pain Level 5 BMI (Body Mass Index) 39.7 kg/m2 03/09/2017 11:18am Heart Rate 72 /min BP Systolic 120 mmHg BP Diastolic 80 mmHg Respiratory Rate 16 /min Pain Level 0 01/31/2017 11:04am Heart Rate 100 /min didnt take his med today BP Systolic 138 mmHg BP Diastolic 84 mmHg Respiratory Rate 24 /min no difficulties breathing. Pain Level 6 O2 % BldC Oximetry 96 % Results Test Date Facility Test Result H/L Range Note Laboratory test 07/03/2018 [facility] Surgical SEE RESULT 1 , [address] [place] [address] [phone] [id number] 2 SEE RESULT BELOW Name: ATIF SAVAGE : [address]: Didi Reza MD Acct: [id number] Unit: [id number] AGE: 27 Location: [facility] Re07/03/18 SEX: M Status: RADHA GUADARRAMA SPEC: [id number] ZE: 07/03/18 [facility] DR: Didi Reza MD REQ: [id number] RECD: 07/03/18 STATUS: SOUT _ ORDERED: LEVEL 3 COMMENTS: [id number] FINAL DIAGNOSIS Meniscus, left knee, excision: -- Benign fibrocartilaginous tissue. PRE-OPERATIVE DIAGNOSIS Left knee lateral meniscus tear GROSS DESCRIPTION The specimen is received in formalin labeled, Portion Meniscus Left Knee, and consists of a 0.4 x 0.4 by up to 0.3 cm lino white rubbery fibrous tissue fragment which is submitted entirely in one cassette. Signed by and Reported on: Reina Tyler MD 07/04/18 1147 END OF REPORT DEPARTMENT OF PATHOLOGY, [address] [place] [address] Cody Smalls M.D. Director [facility] # [id number] Procedures Date Code Description Status 10/16/201834423 Inject Tendon Sheath Or Ligament Aponeurosis Eg Plantar Completed Fascia 07/03/2018 27139 Arthroscopy,Knee,Meniscectomy Medial Or Lateral Completed 10/17/2017 97274 Arthroscopy,Knee,Meniscectomy Medial Or Lateral Completed 10/17/2017 79815 Arthroscopy,Knee,Meniscectomy Medial Or Lateral Completed 01/31/2017 85709 Rad Exam; Knee Comp Completed 01/31/2017 91746 Rad Exam; Knee Comp Completed Encounters Type Date Location Provider Dx Diagnosis Office Visit 11/28/2018 Fausto Reza MD M25.562 Pain in left knee 10:00a Services Of C.M.AJessica S83.92xA Sprain of unspecified site of left knee, initial encounter Office Visit 10/16/2018 8:30a Orthopedic Dominique S67.21xA Crushing injury Services Of Kasey Orozco of right hand, C.M.A. initial encounter M65.331 Trigger finger, right middle finger Office Visit 05/05/2018 9:15a Orthopedic Didi Reza S83.282A Oth tear of Services Of MD amparo medina, C.M.A. current injury, left knee, init M25.462 Effusion, left knee Office Visit 04/25/2018 10:15a Fausto Reza S83.282A Oth tear of Services Of MD amparo medina C.M.A. current injury, left knee, init M25.462 Effusion, left knee S89.91xA Unspecified injury of right lower leg, initial encounter S83.282A Oth tear of amparo medina, current injury, left knee, init Office Visit 09/29/2017 9:00a Fausto Reza, S83.272D Complex tear Services Of MD of lat medina, C.M.A. current injury, left knee, subs S83.015D Lateral dislocation of left patella, subsequent encounter Office Visit 09/23/2017 8:45a Orthopedic Kosta Dove S83.272D Complex tear Services Of Ally Zendejas MD of amparo medina, [place] current injury, left knee, subs S83.015D Lateral dislocation of left patella, subsequent encounter Office Visit 08/12/2017 11:15a Orthopedic Kosta Dove S83.015D Lateral Services Of Ally Zendejas MD dislocation of [place] left patella, subsequent encounter M25.562 Pain in left knee Office Visit 03/09/2017 11:15a Orthopedic Kosta Dove S83.015A Lateral Services Of Ally Zendejas MD dislocation of [place] left patella, initial encounter Office Visit 01/31/2017 11:00a [facility] S83.015A Lateral Services Of [facility] MD Cristiana dislocation of [place] left patella, initial encounter S83.015A Lateral dislocation of left patella, initial encounter Plan of Treatment Future Appointment(s):01/10/2019 2:15 pm - Renea Sanchez PA-C at [facility]..01/10/2019 2:15 pm - Didi Reza MD at [facility].A.02/01/2019 3:00 pm - Didi Reza MD at [facility]..01/09/2019 - Didi Reza, MDS83.282A Other tear of lateral meniscus, current injury, left knee, iFollow up:Follow up: 10-14 days post op
--- NOTE | 2019-01-14 00:12 | ED ---
Lower Extremity - HPI Summary HPI Summary: Pt is a 28 y/o M presenting to the ED with a chief complaint of L leg pain. He is 3 days post-operation on his meniscus and ACL. The pain onset this morning, it shoots from his L calf into his inner thigh, and the Percocet that he is prescribed has not done anything. He currently reports pain. He denies fever. - History of Current Complaint Chief Complaint: EDExtremityLower Stated Complaint: BLOOD CLOT PER PT Time Seen by Provider: 01/14/19 00:04 Hx Obtained From: Patient Mechanism Of Injury: Other - s/p L knee surgery Onset/Duration: Still Present Severity Initially: Moderate Severity Currently: Severe Pain Intensity: 9 Pain Scale Used: 0-10 Numeric Timing: Constant, Lasting Days Location: Radiates To - L calf to L knee/thigh Character Of Pain: Sharp Associated Signs And Symptoms: Positive: Knee Pain. Negative: Fever Aggravating Factor(s): Standing, Ambulation, Movement, Weight Bearing Alleviating Factor(s): Nothing Able to Bear Weight: No - Allergies/Home Medications Allergies/Adverse Reactions: Allergies Allergy/AdvReac Type Severity Reaction Status Date / Time No Known Allergies Allergy Verified 01/13/19 21:47 Home Medications: Home Medications oxyCODONE/Acetamin 5/325 MG* [Percocet 5/325 TAB*] 1 tab PO Q6H PRN 01/14/19 [ History Confirmed 01/14/19] PMH/Surg Hx/FS Hx/Imm Hx Previously Healthy: Yes Endocrine/Hematology History: Denies: Hx Anticoagulant Therapy, Hx Diabetes, Hx Thyroid Disease Cardiovascular History: Reports: Hx Hypertension - his blood pressure is good.htn from a med Denies: Hx Congestive Heart Failure, Hx Deep Vein Thrombosis, Hx Myocardial Infarction, Hx Pacemaker/ICD, Other Cardiovascular Problems/Disorders Respiratory History: Reports: Hx Asthma - As child HASN'T HAD ANY ATTACKS IN YRS , Hx Sleep Apnea - DX 2014 Denies: Hx Chronic Obstructive Pulmonary Disease (COPD), Hx Lung Cancer, Hx Pneumonia, Hx Pulmonary Embolism, Other Respiratory Problems/Disorders GI History: Denies: Hx Gall Bladder Disease, Hx Gastrointestinal Bleed, Hx Ulcer, Hx Urosepsis, Other GI Disorders History: Reports: Hx Kidney Stones - 1 EPISODE OF STONES PER YR LAST EPISODE 12/10 Denies: Hx Renal Disease, Other Problems/Disorders Musculoskeletal History: Reports: Hx Arthritis - BILAT HIPS, legs wrists, back, Other Musculoskeletal History - RIGHT KNEE 2017 INJURY, LEFT KNEE DISLOCATION AT WORK Sensory History: Reports: Hx Contacts or Glasses - glasses, Hx Hearing Aid - not using Opthamlomology History: Reports: Hx Contacts or Glasses - glasses Neurological History: Denies: Hx Dementia, Hx Migraine, Hx Seizures, Hx Transient Ischemic Attacks (TIA), Other Neuro Impairments/Disorders Psychiatric History: Reports: Hx Anxiety - on meds, bipolar, Hx Depression - on meds, Hx Bipolar Disorder Denies: Hx Schizophrenia - Surgical History Surgery Procedure, Year, and Place: RIGHT knee replacement 2012, . Pins /brackets in RIGHT foot . Tonsils AGE 5. Ear tubes AGE 7. Right wrist ORIF . 09/2017, [facility] left knee. 06/2018, left kne, [facility] Hx Anesthesia Reactions: No Infectious Disease History: No Infectious Disease History: Denies: Traveled Outside the [place] in Last 30 Days - Family History Known Family History: Negative: Cardiac Disease, Hypertension - Social History Alcohol Use: Rare Alcohol Amount: 1 per month Hx Substance Use: No Substance Use Type: Reports: None Hx Tobacco Use: Yes Smoking Status (MU): Former Smoker Amount Used/How Often: pack a day forwhile in the service Review of Systems Negative: Fever Positive: Arthralgia, Myalgia All Other Systems Reviewed And Are Negative: Yes Physical Exam - Summary Physical Exam Summary: Appearance: Well-appearing, Well-nourished, lying in bed comfortable Skin: Warm, dry, no obvious rash Eyes: sclera anicteric, no conjunctival pallor ENT: mucous membranes moist Neck: deferred Respiratory: No signs of respiratory distress Cardiovascular: Appears well perfused, pulses are nml Abdomen: deferred Musculoskeletal: L leg dressing taken down, wounds healing well are clean and dry, no edema or erythema to suggest DVT. Neurological: Awake and alert, mentation is normal, speech is fluent and appropriate Psychiatric: affect is normal, does not appear anxious or depressed Triage Information Reviewed: Yes Vital Signs On Initial Exam: Initial Vitals Temp Pulse Resp BP Pulse Ox 97.6 F 57 16 112/75 99 01/13/19 21:46 01/13/19 21:46 01/13/19 21:46 01/13/19 21:46 01/13/19 21:46 Vital Signs Reviewed: Yes Diagnostics - Vital Signs Vital Signs Temp Pulse Resp BP Pulse Ox 01/13/19 23:52 63 109/68 96 01/13/19 21:46 97.6 F 57 16 112/75 99 - Laboratory Lab Statement: Any lab studies that have been ordered have been reviewed, and results considered in the medical decision making process. Lower Extremity Course/Dx - Course Course Of Treatment: Pt is a 28 y/o M presenting to the ED with a chief complaint of L leg pain. He is 3 days post-operation on his meniscus and ACL. The pain onset this morning, it shoots from his L calf into his inner thigh, and the Percocet that he is prescribed has not done anything. He currently reports pain. He denies fever. His physical exam shows no sign of infection, and the site of surgery is clean and dry. He will be discharged with advice to return to the ED for an ultrasound if it continues, and the pt is agreeable with this plan. - Diagnoses Provider Diagnoses: Postoperative pain of extremity Discharge - Sign-Out/Discharge Documenting (check all that apply): Patient Departure Patient Received Moderate/Deep Sedation with Procedure: No - Discharge Plan Condition: Stable Disposition: HOME Referrals: Didi Reza MD [Medical Doctor] - Additional Instructions: The blood test looking for signs of blood clot was normal, which is reassuring. However the definitive test is ultrasound, which we can get first thing in the am. I go off duty at 7 am but will leave instructions with the triage nurse to get the study ordered as soon as you arrive so we can get it done quickly and get you home. - Billing Disposition and Condition Condition: STABLE Disposition: Home - Attestation Statements Document Initiated by Roberto: Yes Documenting Scribe: Lesli Art Provider For Whom Roberto is Documenting (Include Credential): Sergey Durand MD. Scribe Attestation: I, Lesli Art, belaed for Sergey Durand MD. on 01/14/19 at 0553. Scribe Documentation Reviewed: Yes Provider Attestation: The documentation as recorded by the Lesli cardenas accurately reflects the service I personally performed and the decisions made by me, Sergey Durand MD. Status of Scribe Document: Viewed
[2019-01-14] MEDS ORDERED: oxyCODONE/Acetamin 5/325 MG* TAB PO ONE (00:16)
[2019-01-14] MEDS ORDERED: Morphine 4 MG/ML VIAL (1 ml) 4 MG/ML VIAL IM ONE (01:10)
[2019-01-14 02:13] VITALS: BP 92/53
== END 2019-01-14 01:55 | disposition home or self-care (01) ==
LOC: ED 21:43
DX: G89.18 Other acute postprocedural pain (principal); I10 Essential (primary) hypertension; Z87.891 Personal history of nicotine dependence
CPT/HCPCS: 36415; 85379; 96372; 99282; A9270-GY; J2270

== ENCOUNTER → 2019-01-19 12:18 | Emergency (ER) | payer OTHER ==
[~2019-01-19 12:18] MED LIST changes: -Acetaminophen TAB* 325 MG PO PRN; -Buffered Lidocaine 1% SYRIN* 1 ML/SYRINGE INTRADERM ONE; -DiMENhydriNATE IV* 50 MG/ML VIAL IV PUSH PRN; -Famotidine IV* 10 MG/ML 2 ML (20 mg) IV ONE; -Famotidine IV* 10 MG/ML 2 ML (20 mg) ONE; -HYDROmorphone INJ1* 1 MG/ML SYRINGE ONE; -Ketorolac INJ* 30 MG/ML 1 ML VIAL ONE; -Lactated Ringers 1000 ML Bag* 1,000 ML IV SCH; -Lidocaine 1% MPF wEPI 200,000* 30 ML SDV ONE; -Lidocaine 2% PF * 5 ML VIAL ONE; -Midazolam* 1 MG/ML 5 ML VIAL (5 MG) ONE; -Naloxone* 0.4 MG/ML 1 ML VIAL IV PRN; -Ondansetron INJ* 2 MG/ML VIAL ONE; -Propofol* 10 MG/ML 20 ML BTL ONE; -Ropivacaine* 2 MG/ML 20 ML VIAL (0.2%) ONE; -ceFAZolin 2 GM in NS PREMIX(*) 2 GM/100 ML BAG IVPB ONE; -fentaNYL* 50 MCG/ML 2 ML VIAL (100 MCG VIAL) ONE; -oxyCODONE/Acetamin 5/325 MG* TAB ONE; +oxyCODONE/Acetamin 5/325 MG* TAB PO ONE
--- NOTE | 2019-01-19 14:37 | ED ---
Lower Extremity - HPI Summary HPI Summary: Patient is a 28-year-old male who presents emergency department for evaluation of DVT to his left leg. Patient had repair of lateral meniscus tear on 01/10/19 seems safe. Patient states he developed pain in his left calf over the last week and was seen by orthopedics today ordered an outpatient ultrasound which showed a DVT of peroneal vein. Patient denies chest pain or shortness of breath. Symptoms are moderate in severity. He has no significant past medical history. No current modifying factors. - History of Current Complaint Chief Complaint: EDExtremityLower Stated Complaint: "I HAVE A BLOOD CLOT IN MY LEG" PER PT Time Seen by Provider: 01/19/19 14:35 Hx Obtained From: Patient Pain Intensity: 7 - Allergies/Home Medications Allergies/Adverse Reactions: Allergies Allergy/AdvReac Type Severity Reaction Status Date / Time No Known Allergies Allergy Verified 01/19/19 12:35 Home Medications: Home Medications Ketorolac TAB * [Toradol TAB *] 1 tab PO Q8H 01/19/19 [History Confirmed ] Tramadol HCl 1 tab PO Q6H PRN 01/19/19 [History Confirmed 01/19/19] PMH/Surg Hx/FS Hx/Imm Hx Previously Healthy: Yes Endocrine/Hematology History: Denies: Hx Anticoagulant Therapy, Hx Diabetes, Hx Thyroid Disease Cardiovascular History: Reports: Hx Hypertension - his blood pressure is good.htn from a med Denies: Hx Congestive Heart Failure, Hx Deep Vein Thrombosis, Hx Myocardial Infarction, Hx Pacemaker/ICD, Other Cardiovascular Problems/Disorders Respiratory History: Reports: Hx Asthma - As child HASN'T HAD ANY ATTACKS IN YRS , Hx Sleep Apnea - DX 2014 Denies: Hx Chronic Obstructive Pulmonary Disease (COPD), Hx Lung Cancer, Hx Pneumonia, Hx Pulmonary Embolism, Other Respiratory Problems/Disorders GI History: Denies: Hx Gall Bladder Disease, Hx Gastrointestinal Bleed, Hx Ulcer, Hx Urosepsis, Other GI Disorders History: Reports: Hx Kidney Stones - 1 EPISODE OF STONES PER YR LAST EPISODE 12/10 Denies: Hx Renal Disease, Other Problems/Disorders Musculoskeletal History: Reports: Hx Arthritis - BILAT HIPS, legs wrists, back, Other Musculoskeletal History - RIGHT KNEE 2017 INJURY, LEFT KNEE DISLOCATION AT WORK Sensory History: Reports: Hx Contacts or Glasses - glasses, Hx Hearing Aid - not using Opthamlomology History: Reports: Hx Contacts or Glasses - glasses Neurological History: Denies: Hx Dementia, Hx Migraine, Hx Seizures, Hx Transient Ischemic Attacks (TIA), Other Neuro Impairments/Disorders Psychiatric History: Reports: Hx Anxiety - on meds, bipolar, Hx Depression - on meds, Hx Bipolar Disorder Denies: Hx Schizophrenia - Surgical History Surgery Procedure, Year, and Place: RIGHT knee replacement . Pins /brackets in RIGHT foot . Tonsils AGE 5. Ear tubes AGE 7. Right wrist ORIF . 09/2017, [facility] left knee. 06/2018, left kne, [facility] Hx Anesthesia Reactions: No Infectious Disease History: No Infectious Disease History: Denies: Traveled Outside the [place] in Last 30 Days - Family History Known Family History: Negative: Cardiac Disease, Hypertension - Social History Occupation: Employed Full-time Lives: With Family Alcohol Use: Rare Alcohol Amount: 1 per month Hx Substance Use: No Substance Use Type: Reports: None Hx Tobacco Use: Yes Smoking Status (MU): Former Smoker Amount Used/How Often: pack a day forwhile in the service Review of Systems Constitutional: Negative Negative: Fever, Chills Cardiovascular: Negative Negative: Palpitations Respiratory: Negative Negative: Shortness Of Breath Positive: Other - Left knee pain. Left calf pain. Neurological: Negative Negative: Weakness, Paresthesia, Numbness All Other Systems Reviewed And Are Negative: Yes Physical Exam Triage Information Reviewed: Yes Vital Signs On Initial Exam: Initial Vitals Temp Pulse Resp BP Pulse Ox 98.6 F 72 16 131/81 99 01/19/19 12:29 01/19/19 12:29 01/19/19 12:29 01/19/19 12:29 01/19/19 12:29 Vital Signs Reviewed: Yes Appearance: Positive: Well-Appearing - Pt. sitting up in bed in NAD. Skin: Positive: Warm, Dry Head/Face: Positive: Normal Head/Face Inspection Eyes: Positive: Normal, EOMI, PAVEL Neck: Positive: Supple Respiratory/Lung Sounds: Positive: Clear to Auscultation, Breath Sounds Present Cardiovascular: Positive: Normal, RRR Musculoskeletal: Positive: Other - Incision to left anterior knee without signs of infection. Mild left calf pain on palpation. Compartments are soft. Good pedal pulse. Neurological: Positive: Normal, CN Intact II-III Psychiatric: Positive: Affect/Mood Appropriate Diagnostics - Vital Signs Vital Signs Temp Pulse Resp BP Pulse Ox 01/19/19 12:29 98.6 F 72 16 131/81 99 - Laboratory Result Diagrams: 01/19/19 14:53 01/19/19 14:53 Lab Statement: Any lab studies that have been ordered have been reviewed, and results considered in the medical decision making process. Lower Extremity Course/Dx - Course Course Of Treatment: Patient presenting for treatment of known DVT a peroneal vein. He has no other complaints. He is afebrile stable vital signs. Basic labs are obtained unremarkable. Will start patient on Eliquis. Patient counseled on risk vs benefits of anticoagulation. Advised patient to call his family doctor for close follow up appointment for further prescriptions. To follow up with orthopedics as directed. Return to ER for increased pain, chest pain, shortness of breath, fever or if concerned. Patient understands and agrees with plan. - Diagnoses Differential Diagnosis/HQI/PQRI: Positive: DVT Provider Diagnoses: Peroneal DVT (deep venous thrombosis) Discharge - Sign-Out/Discharge Documenting (check all that apply): Patient Departure Patient Received Moderate/Deep Sedation with Procedure: No - Discharge Plan Condition: Good Disposition: HOME Prescriptions: Apixaban* [Eliquis*] 5 mg PO BID #70 tab Patient Education Materials: Apixaban (By mouth), Deep Vein Thrombosis (ED), Safe Use of Anticoagulants (ED) Referrals: Jules Prasad [Primary Care Provider] - Additional Instructions: Schedule a close follow up appointment with your PCP, you will need additional prescriptions for blood thinner Take Eliquis as directed Please read handouts on Eliquis and medications to avoid Return to ER for increased pain, swelling, fever, shortness of breath, chest pain - Billing Disposition and Condition Condition: GOOD Disposition: Home
[2019-01-19 15:02] LABS: ABS Basophils 0 10^3/ul (0-0.2); ABS Eosinophils 0.1 10^3/ul (0-0.6); ABS Lymphocytes 1.8 10^3/ul (1.0-4.8); ABS Monocytes 0.3 10^3/ul (0-0.8); ABS Neutrophils 4.4 10^3/ul (1.5-7.7); ABS Nucleated RBC 0 10^3/ul; Eosinophil % 1.1 %; Hematocrit 47 % (36-46); Hemoglobin 16.1 g/dL (14.0-18.0); Lymphocyte % 27.7 %; Mean Corpuscular HGB Conc 34 g/dL (31-36); Mean Corpuscular Hemoglobin 31 pg (27-31); Mean Corpuscular Volume 91 fL (80-94); Mean Platelet Volume 9.7 fL (7.4-10.4); Nucleated Red Blood Cells % 0.1; Platelet Count 203 10^3/uL (150-450); Red Blood Count 5.18 10^6 /uL (4.18-5.48); Red Cell Distribution Width 15 % (10.5-15); White Blood Count 6.6 10^3/uL (3.5-10.8)
[2019-01-19 15:18] LABS: Albumin 4.7 g/dL (3.2-5.2); BUN/Creatinine Ratio 13.2 (8-20); Calcium 9.6 mg/dL (8.6-10.3); EGFR African American 99.3 (>60); Globulin 2.3 g/dL (2-4); Potassium 4.3 mmol/L (3.5-5.0)
[2019-01-19 15:19] LABS: INR 1.03 (0.82-1.09)
[2019-01-19 15:41] VITALS: BP 158/96
== END | disposition home or self-care (01) ==
LOC: ED 12:18
DX: I82.492 Acute embolism and thrombosis of other specified deep vein of left lower extremity (principal); G47.30 Sleep apnea, unspecified; F41.9 Anxiety disorder, unspecified; F31.9 Bipolar disorder, unspecified; Z79.899 Other long term (current) drug therapy; Z87.891 Personal history of nicotine dependence
CPT/HCPCS: 36415; 80053; 85025; 85610; 99282; A9270-GY

== ENCOUNTER 2019-06-06 20:52 | Emergency (ER) | payer OTHER ==
[2019-06-06 21:14] LABS: ABS Eosinophils 0.3 10^3/ul (0-0.6); ABS Lymphocytes 2.7 10^3/ul (1.0-4.8); ABS Monocytes 0.4 10^3/ul (0-0.8); ABS Neutrophils 2.9 10^3/ul (1.5-7.7); Eosinophil % 4.4 %; Hematocrit 45 % (42-52); Hemoglobin 15.4 g/dL (14.0-18.0); Mean Corpuscular HGB Conc 34 g/dL (31-36); Mean Corpuscular Hemoglobin 32 pg (27-31); Mean Corpuscular Volume 94 fL (80-94); Mean Platelet Volume 8.6 fL (7.4-10.4); Nucleated Red Blood Cells % 0.1; Platelet Count 193 10^3/uL (150-450); Red Blood Count 4.85 10^6 /uL (4.18-5.48); Red Cell Distribution Width 15 % (10-15); White Blood Count 6.3 10^3/uL (3.5-10.8)
--- OUTSIDE RECORDS SUMMARY | 2019-06-06 21:21 | XMS REPORT | Continuity of Care Document ---
:1990 External Reference #:[id number] Author Name Didi Reza MD (transmitted by agent of provider Jana Drake) Address [address] [place] [address] Care Team Providers Name Role Phone [facility] - Internal Care Team Information [employer] Around [employer]maker [phone] Medicine Problems Active Problems Provider Date Complex tear of lateral meniscus, current injury, Didi Reza MD Onset: 12/2017 left knee, subsequent encounter Lateral dislocation of left patella, subsequent Didi Reza MD Onset: 09/29 encounter Current tear of lateral cartilage AND/OR meniscus Didi Reza MD Onset: of knee Knee joint effusion Didi Reza MD Onset: 04/25/2018 Edema Didi Reza MD Onset: 01/19/2019 Derangement of knee Didi Reza MD Onset: 03/27/2019 Peripheral tear of lateral meniscus, current Didi Reza MD Onset: 2018 injury, left knee, subsequent encounter Sprain of posterior cruciate ligament of left Didi Reza MD Onset: 2018 knee, subsequent encounter Social History Type Date Description Comments Sex Unknown Smokeless Tobacco Current Smokeless Uses 2 cans of chew Tobacco User, Uses 10 tobacco a day Times Daily ETOH Use Occasionally consumes alcohol Tobacco Use Start: Unknown End: Patient is a former Quit 2010 Unknown smoker Recreational Drug Use Denies Drug Use Smoking Status Reviewed: 05/08/19 Patient is a former Quit 2010 smoker Exercise Type/Frequency Exercises regularly lifts weights upper body Allergies, Adverse Reactions, Alerts Description No Known Drug Allergies Medications Active Medications SIG Qnty Indications Ordering Provider Date Diclofenac Sodium take 1 by mouth 30tabs Didi Reza MD 02/27/2019 75mg twice a day as Tablets DR needed for pain Clonidine HCL 1 by mouth tid Unknown 0.1mg Tablets History Medications Ketorolac Tromethamine Take one tab every 3tabs Didi Reza MD 2018 - 8 hours; first 01/24/2019 10mg Tablets dose given in hospital IV 01/10/19 Tramadol HCL 1 tab every 6 20tabs Didi Reza MD 01/15/2019 - 50mg Tablets hours as needed 01/24/2019 for pain Percocet 1 tabs by mouth 14tabs Didi Reza MD 01/10/2019 - 5-325mg Tablets every 4-6 hours as 01/15/2019 needed post op pain Medications Administered in Office Medication SIG Qnty Indications Ordering Provider Date Depomedrol 40MG Dominique Orozco M.D. 10/16/2018 Injection Immunizations Description No Information Available Vital Signs Date Vital Result Comment 05/08/2019 1:15pm Height 67 inches 5'7" Weight 247.00 lb BP Systolic 134 mmHg BP Diastolic 82 mmHg Respiratory Rate 18 /min Pain Level 5 BMI (Body Mass Index) 38.7 kg/m2 03/27/2019 10:43am Height 67 inches 5'7" Weight 247.00 lb Heart Rate 84 /min BP Systolic 118 mmHg Body Temperature 98.1 F Pain Level 7 BMI (Body Mass Index) 38.7 kg/m2 Results Description No Information Available Procedures Date Code Description Status 01/10/2019 53940 Arthroscopy,Knee,Meniscus Repair Medial Or Lateral Completed 01/10/2019 47294 Arthroscopy,Knee,Meniscus Repair Medial Or Lateral Completed Medical Devices Description No Information Available Encounters Type Date Location Provider Dx Diagnosis Office Visit 05/08/2019 Orthopedic Didi Reza MD S83.522D Sprain of 1:[facility]p [facility] posterior cruciate ligament of left knee, subs S83.262D Prph tear of lat mensc, current injury, left knee, subs R60.0 Localized edema Office Visit 03/27/2019 11:00a Orthopedic Didi Reza S83.522D Sprain of [facility] raphael CisnerosMJessicaA. cruciate ligament of left knee, subs M23.622 Oth spon disrupt of posterior cruciate ligament of left knee Office Visit 01/02/2019 3:15p Orthopedic Didi Reza, S83.282D Oth tear of [facility] amparo medina, C.M.A. current injury, left knee, subs Office Visit 11/28/2018 10:00a Orthopedic Didi Reza, M25.562 Pain in left [facility] oglesby C.M.A. S83.92xA Sprain of unspecified site of left knee, initial encounter Assessments Date Code Description Provider 05/08/2019 S83.522D Sprain of posterior cruciate ligament of Didi Reza MD left knee, subsequent encounter 05/08/2019 S83.262D Peripheral tear of lateral meniscus, Didi Reza MD current injury, left kn 05/08/2019 R60.0 Localized edema Didi Reza MD 03/27/2019 S83.522D Sprain of posterior cruciate ligament of Didi Reza MD left knee, subs 03/27/2019 M23.622 Other spontaneous disruption of posterior Didi Reza MD cruciate ligament of left knee 02/06/2019 S83.262D Peripheral tear of lateral meniscus, Didi Reza MD current injury, left kn 02/06/2019 R60.0 ubsequent encounter Didi Reza MD 02/06/2019 M79.662 Pain in left lower leg Didi Reza MD 01/19/2019 S83.262A Peripheral tear of lateral meniscus, Didi Reza MD current injury, left kn 01/19/2019 R60.0 Localized edema Didi Reza MD 01/19/2019 S83.262A Peripheral tear of lateral meniscus, Didi Reza MD current injury, left knee, initial encounter 01/19/2019 M79.662 Pain in left lower leg Didi Reza MD 01/10/2019 S83.262A Prph tear of lat mensc, current injury, Didi Reza MD left knee, init 01/10/2019 S83.262A Prph tear of lat mensc, current injury, Renea Sanchez PA-C left knee, init 01/09/2019 S83.282A Other tear of lateral meniscus, current Didi Reza MD injury, left knee, i 01/05/2019 S83.282A Other tear of lateral meniscus, current Didi Reza MD injury, left knee, initial encounter 01/02/2019 S83.282D Other tear of lateral meniscus, current Didi Reza MD injury, left knee, s 11/28/2018 M25.562 Pain in left knee Didi Reza MD 11/28/2018 S83.92xA Sprain of unspecified site of left knee, Didi Reza MD initial encounter Plan of Treatment Future Appointment(s):06/05/2019 8:45 am - Did[facility] MD at [facility]05/08/2019 - Didi Reza MDS83.522D Sprain of posterior cruciate ligament of left knee, subsequent [id number] Peripheral tear of lateral meniscus, current injury, left knReferral:Lorelei Akins MD, Hematology & OncologyFollow up:Follow up: 4 [id number] Localized edema Functional Status Description No Information Available Mental Status Description No Information Available Referrals Refer to Reason for Referral Status Appt Date Lorelei Akins MD pt with blood cloth post surgery. comp case Created that will not approve medication [address] [place]man [phone]
--- OUTSIDE RECORDS SUMMARY | 2019-06-06 21:21 | XMS REPORT | Continuity of Care Document ---
:1990 External Reference #:[id number] Author Name Didi Reza MD (transmitted by agent of provider Susy Truong) Address [address], [place] [address] Care Team Providers Name Role Phone [facility] - Internal Care Team Information [employer] Setter [phone] Medicine Problems Active Problems Provider Date Complex [...] Use Denies Drug Use Smoking Status Reviewed: 06/05/19 Patient is a former Quit 2011 smoker Exercise Type/Frequency Exercises regularly lifts weights upper body Allergies, Adverse Reactions, Alerts Description No Known Drug Allergies Medications Active Medications SIG Qnty Indications Ordering Provider Date Clonidine HCL 1 by mouth tid Unknown 0.1mg Tablets History Medications Diclofenac Sodium take 1 by mouth 30tabs Didi Reza MD 02/27/2019 - 75mg twice a day as 05/29/[address] needed for pain Ketorolac Tromethamine Take one tab every 3tabs [...] Available Vital Signs Date Vital Result Comment 06/05/2019 8:50am Height 67 inches 5'7" Weight 254.00 lb Heart Rate 68 /min BP Systolic Sitting 144 mmHg BP Diastolic Sitting 94 mmHg Body Temperature 97.6 F Pain Level 7 BMI (Body Mass Index) 39.8 kg/m2 05/08/2019 1:15pm Height 67 inches 5'7" Weight 247.00 lb BP Systolic 134 mmHg BP Diastolic 82 mmHg Respiratory Rate 18 /min Pain Level 5 BMI (Body Mass Index) 38.7 kg/m2 Results Description No Information Available Procedures Date Code Description Status 01/10/2019 86063 Arthroscopy,Knee,Meniscus Repair Medial Or Lateral Completed 01/10/2019 15310 Arthroscopy,Knee,Meniscus Repair Medial Or Lateral Completed Medical Devices Description No Information Available Encounters Type Date Location Provider Dx Diagnosis Office Visit 05/08/2019 Orthopedic Didi Reza MD S83.522D Sprain of 1:15p [facility] posterior cruciate ligament of left knee, subs S83.262D Prph tear of lat mensc, current injury, left knee, subs R60.0 Localized edema I82.402 Acute embolism and thombos unsp deep veins of l low extrem Office Visit 03/27/2019 11:00a Orthopedic Didi Reza S83.522D Sprain of Services [facility] MD posterior C.M.A. cruciate ligament of left knee, subs M23.622 Oth spon disrupt of posterior cruciate ligament of left knee Office Visit 01/02/2019 3:15p Orthopedic Didi Reza, S83.282D Oth tear of [facility] amparo medina, C.M.A. current injury, left knee, subs Assessments Date Code Description Provider 06/05/2019 S83.522D Sprain of posterior cruciate ligament of Didi Reza MD left knee, subsequent encounter 06/05/2019 S83.262D Peripheral tear of lateral meniscus, Didi Reza MD current injury, left kn 06/05/2019 S83.522D Sprain of posterior cruciate ligament of Didi Reza MD left knee, subsequent encounter 05/08/2019 S83.522D Sprain of posterior cruciate ligament of Didi Reza MD left knee, subsequent encounter 05/08/2019 S83.262D Peripheral tear of lateral meniscus, Didi Reza MD current injury, left kn 05/08/2019 R60.0 Localized edema Didi Reza MD 05/08/2019 I82.402 Acute embolism and thrombosis of Didi Reza MD unspecified deep veins of left lower extremity 03/27/2019 S83.522D Sprain of posterior cruciate ligament [...] Didi Reza MD injury, left knee, s Plan of Treatment Future Appointment(s):07/24/2019 9:15 am - Did[facility] MD at [facility]06/05/2019 - Didi Reza, MDS83.522D Sprain of posterior cruciate ligament of left knee, subsequent encounterNew Therapy:Physical TherapyFollow up:Follow up: 6 lndhvD57.262D Peripheral tear of lateral meniscus, current injury, left kn Functional Status Description No Information Available Mental Status Description No Information Available Referrals Refer to Reason for Referral Status Appt Date Lorleei Adame MD pt with blood cloth post surgery. comp case that Sent 08/2019 will not approve medication 101 Dates [place]ENCE Holman [phone]
[2019-06-06 21:30] LABS: Albumin 4.8 g/dL (3.2-5.2); Albumin/Globulin Ratio 2.4 (1-3); BUN/Creatinine Ratio 11.2 (8-20); Calcium 9.8 mg/dL (8.6-10.3); EGFR African American 98.2 (>60); EGFR Non-African American 81.1 (>60); Potassium 3.8 mmol/L (3.5-5.0); Total Bilirubin 0.5 mg/dL (0.2-1.0); Total Protein 6.8 g/dL (6.4-8.9)
--- NOTE | 2019-06-06 21:35 | ED ---
HPI Chest Pain - HPI Summary HPI Summary: Patient complains of left sided chest pain radiating into neck with associated nausea. CP described as left-sided, constant. States he measured his heart rate at 120. Patient states symptoms started while at rest watching television. Patient states history of DVT in his left leg post knee surgery 4 months ago. Patient states he was never able to start anticoagulation as his insurance rejected. States history of SOB and occasional CP with exertion. Also states history of heartburn, admits to eating salsa and chips tonight, but states sternal chest pain after eating salsa and chips resolved prior to onset of anterior left-sided chest pain. Last fever, cough, sore throat, V/D, abdominal pain, change in urine, change in BM. Medical history is HTN has been tapered off his medication by PCP. - History of Current Complaint Chief Complaint: EDChestPainROMI Time Seen by Provider: 06/06/19 21:22 Hx Obtained From: Patient Onset/Duration: Started Hours Ago Timing: Constant Initial Severity: Mild Current Severity: Mild Pain Intensity: 3 Pain Scale Used: 0-10 Numeric Chest Pain Location: Left Anterior Chest Pain Radiates To:: Neck Character: Pressure/Squeezing, Sharp/Stabbing Aggravating Factor(s): Nothing Alleviating Factor(s): Nothing Associated Signs and Symptoms: Positive: Chest Pain - Allergy/Home Medications Allergies/Adverse Reactions: Allergies Allergy/AdvReac Type Severity Reaction Status Date / Time No Known Allergies Allergy Verified 01/19/19 12:35 PMH/Surg Hx/FS Hx/Imm Hx Endocrine/Hematology History: Denies: Hx Anticoagulant Therapy, Hx Diabetes, Hx Thyroid Disease Cardiovascular History: Reports: Hx Hypertension - ON MEDS Denies: Hx Congestive Heart Failure, Hx Deep Vein Thrombosis, Hx Myocardial Infarction, Hx Pacemaker/ICD, Other Cardiovascular Problems/Disorders Respiratory History: Reports: Hx Asthma - As child HASN'T HAD ANY ATTACKS IN YRS , Hx Sleep Apnea - DX 2014 Denies: Hx Chronic Obstructive Pulmonary Disease (COPD), Hx Lung Cancer, Hx Pneumonia, Hx Pulmonary Embolism, Other Respiratory Problems/Disorders GI History: Denies: Hx Gall Bladder Disease, Hx Gastrointestinal Bleed, Hx Ulcer, Hx Urosepsis, Other GI Disorders History: Reports: Hx Kidney Stones - 1 EPISODE OF STONES PER YR LAST EPISODE 12/10 Denies: Hx Renal Disease, Other Problems/Disorders Musculoskeletal History: Reports: Hx Arthritis - BILAT HIPS, legs wrists, back, Other Musculoskeletal History - RIGHT KNEE 2017 INJURY, LEFT KNEE DISLOCATION AT WORK Sensory History: Reports: Hx Contacts or Glasses - glasses Denies: Hx Hearing Aid Opthamlomology History: Reports: Hx Contacts or Glasses - glasses Neurological History: Denies: Hx Dementia, Hx Migraine, Hx Seizures, Hx Transient Ischemic Attacks (TIA), Other Neuro Impairments/Disorders Psychiatric History: Reports: Hx Anxiety - on meds, bipolar, Hx Depression - on meds, Hx Bipolar Disorder Denies: Hx Panic Disorder, Hx Schizophrenia - Surgical History Surgery Procedure, Year, and Place: RIGHT knee replacement ;. Pins/brackets in RIGHT foot ;. FUSION ON TAIL BONE 2012;. Right wrist ORIF . Tonsils AGE 5. Ear tubes AGE 7. 09/2017, [facility] left knee. 06/2018, left knee, [facility]. 01/12 LEFT KNEE, [facility] Hx Anesthesia Reactions: No Infectious Disease History: No Infectious Disease History: Denies: Traveled Outside the [place] in Last 30 Days - Family History Known Family History: Negative: Cardiac Disease, Hypertension - Social History Alcohol Use: Rare Alcohol Amount: 1 per month Hx Substance Use: No Substance Use Type: Reports: None Hx Tobacco Use: Yes Smoking Status (MU): Former Smoker Amount Used/How Often: pack a day forwhile in the service Review of Systems Constitutional: Negative Eyes: Negative ENT: Negative Positive: Chest Pain Respiratory: Negative Positive: Nausea Genitourinary: Negative Musculoskeletal: Negative Skin: Negative Neurological: Negative Psychological: Normal All Other Systems Reviewed And Are Negative: Yes Physical Exam - Summary Physical Exam Summary: Left lower extremity nontender. No erythema, ecchymosis, deformity, swelling noted to left lower extremity. Chest pain nonreproducible. Triage Information Reviewed: Yes Vital Signs On Initial Exam: Initial Vitals Temp Pulse Resp BP Pulse Ox 98.3 F 96 18 150/104 98 06/06/19 20:57 06/06/19 20:57 06/06/19 20:57 06/06/19 20:57 06/06/19 20:57 Vital Signs Reviewed: Yes Appearance: Positive: Well-Appearing Skin: Positive: Warm Head/Face: Positive: Normal Head/Face Inspection Eyes: Positive: Normal Neck: Positive: Supple Respiratory/Lung Sounds: Positive: Clear to Auscultation Cardiovascular: Positive: Normal Abdomen Description: Positive: Nontender Musculoskeletal: Positive: Normal Neurological: Positive: Normal Psychiatric: Positive: Normal AVPU Assessment: Alert - Kirk Coma Scale Best Eye Response: 4 - Spontaneous Best Motor Response: 6 - Obeys Commands Best Verbal Response: 5 - Oriented Coma Scale Total: 15 Diagnostics - Vital Signs Vital Signs Temp Pulse Resp BP Pulse Ox 06/06/19 20:57 98.3 F 96 18 150/104 98 - Laboratory Lab Results: Lab Results 06/06/19 06/06/19 Range/Units 21:07 21:07 WBC 6.3 (3.5-10.8) 10^3/uL RBC 4.85 (4.18-5.48) 10^6 /uL Hgb 15.4 (14.0-18.0) g/dL Hct 45 (42-52) % MCV 94 (80-94) fL MCH 32 H (27-31) pg MCHC 34 (31-36) g/dL RDW 15 (10-15) % Plt Count 193 (150-450) 10^3/uL MPV 8.6 (7.4-10.4) fL Neut % (Auto) 46.4 % Lymph % (Auto) 43.0 % [place] % (Auto) 5.7 % Eos % (Auto) 4.4 % Baso % (Auto) 0.5 % Absolute Neuts (auto) 2.9 (1.5-7.7) 10^3/ul Absolute Lymphs (auto) 2.7 (1.0-4.8) 10^3/ul Absolute Monos (auto) 0.4 (0-0.8) 10^3/ul Absolute Eos (auto) 0.3 (0-0.6) 10^3/ul Absolute Basos (auto) 0.0 (0-0.2) 10^3/ul Absolute Nucleated RBC 0.0 10^3/ul Nucleated RBC % 0.1 Sodium 138 (135-145) mmol/L Potassium 3.8 (3.5-5.0) mmol/L Chloride 104 (101-111) mmol/L Carbon Dioxide 28 (22-32) mmol/L Anion Gap 6 (2-11) mmol/L BUN 12 (6-24) mg/dL Creatinine 1.07 (0.67-1.17) mg/dL Est GFR ( Amer) 98.2 (>60) Est GFR (Non-Af Amer) 81.1 (>60) BUN/Creatinine Ratio 11.2 (8-20) Glucose 110 H (70-100) mg/dL Calcium 9.8 (8.6-10.3) mg/dL Total Bilirubin 0.50 (0.2-1.0) mg/dL AST 30 (13-39) U/L ALT 48 (7-52) U/L Alkaline Phosphatase 44 (34-104) U/L Troponin I 0.00 (<0.04) ng/mL Total Protein 6.8 (6.4-8.9) g/dL Albumin 4.8 (3.2-5.2) g/dL Globulin 2.0 (2-4) g/dL Albumin/Globulin Ratio 2.4 (1-3) Result Diagrams: 06/06/19 21:07 06/06/19 21:07 Lab Statement: Any lab studies that have been ordered have been reviewed, and results considered in the medical decision making process. Chest Pain Course/Dx - Course Course Of Treatment: Patient complains of left sided chest pain radiating into neck with associated nausea. CP described as left-sided, constant. States he measured his heart rate at 120. Patient states symptoms started while at rest watching television. Patient states history of DVT in his left leg post knee surgery 4 months ago. Patient states he was never able to start anticoagulation as his insurance rejected. States history of SOB and occasional CP with exertion. Also states history of heartburn, admits to eating salsa and chips tonight, but states sternal chest pain after eating salsa and chips resolved prior to onset of anterior left-sided chest pain. Last fever, cough, sore throat, V/D, abdominal pain, change in urine, change in BM. Medical history is HTN has been tapered off his medication by PCP. Vital signs within normal limits. Labs unremarkable. D-dimer negative. CTA chest negative for PE. Ultrasound of left lower extremity negative for DVT. Patient advised trial of ibuprofen for chest pain. Patient understands and approves of plan. - Diagnoses Provider Diagnoses: Atypical chest pain Discharge ED - Sign-Out/Discharge Documenting (check all that apply): Patient Departure Patient Received Moderate/Deep Sedation with Procedure: No - Discharge Plan Condition: Stable Disposition: HOME Patient Education Materials: Chest Pain (ED) Referrals: Angela BRADFORD ANP,Drew Ortiz [Primary Care Provider] - Additional Instructions: Follow-up with primary care. Return to the ED for any new or worsening symptoms. - Billing Disposition and Condition Condition: STABLE Disposition: Home - Attestation Statements Provider Attestation: I was available for consultation for this patient. I did not evaluate the patient or participate in any medical decision making or disposition decisions unless I am specifically named in the chart as having consulted on the patient. If I have consulted on the patient, please see my own ED note on the patient encounter. Mina Young MD
[2019-06-06] MEDS ORDERED: Ondansetron INJ* 2 MG/ML VIAL IV ONE (21:36)
[2019-06-06] MEDS ORDERED: Morphine 4 MG/ML VIAL (1 ml) 4 MG/ML VIAL IV ONE (21:36)
[2019-06-06] MEDS ORDERED: Iohexol 350* (CONTRAST) 500 ML MDV IV ONE (21:38)
[2019-06-06 22:01] LABS: INR 0.92 (0.82-1.09)
[2019-06-06] MEDS ORDERED: Ibuprofen TAB* 600 MG PO ONE (23:21)
[2019-06-07 00:51] VITALS: BP 110/63
== END 2019-06-07 00:50 | disposition home or self-care (01) ==
LOC: ED 20:52
DX: R07.89 Other chest pain (principal); I10 Essential (primary) hypertension; J45.909 Unspecified asthma, uncomplicated; G43.909 Migraine, unspecified, not intractable, without status migrainosus; F31.9 Bipolar disorder, unspecified; F41.9 Anxiety disorder, unspecified; Z86.73 Personal history of transient ischemic attack (TIA), and cerebral infarction without residual deficits; Z87.891 Personal history of nicotine dependence; Z79.01 Long term (current) use of anticoagulants; Z79.899 Other long term (current) drug therapy
CPT/HCPCS: 36415; 71275; 80053; 84484; 85025; 85379; 85610; 93005; 96374; 96375; 99283; A9270-GY; J2270; J2405; Q9967